=== PATIENT | male | born 1975 | race Caucasian/White ===

== ENCOUNTER 2020-01-31 18:26 | Emergency (ER) | payer BC, SELFPAY ==
[2020-01-31 18:38] VITALS: BP 160/101; PULSE 80; RESP 20; TEMP 36.6; O2SAT 95
--- NOTE | 2020-01-31 19:19 | ED.GENADULT ---
HPI - General Adult General Chief complaint: Upper Respiratory Infection Stated complaint: sore throat Time Seen by Provider: 01/31/20 19:19 Source: patient and RN notes reviewed Mode of arrival: ambulatory Limitations: no limitations History of Present Illness HPI narrative: 44-year-old male presents with complaints of sore throat and cough for the past 3 days. No treatment. No high fevers, drooling, neck or throat swelling. Pain is bilateral. Hurts to swallow. Exacerbation factors consist of eating and drinking. No rhinorrhea. Nasal congestion. No voice change. No nausea, vomiting, or abdominal pain. Tolerating liquids well. Denies chills, dyspnea, difficulty swallowing, jaw pain, dental pain, facial pain, foreign body sensation, and rash. Remains active. Some parts of this dictation were generated by voice recognition software and may contain typographical and/or grammatical inaccuracies. Related Data Home Medications Medication Instructions Recorded Confirmed albuterol sulfate [Ventolin HFA] 2 inh INHALATION DAILY 01/31/20 01/31/20 budesonide-formoterol [Symbicort] 1 inh INHALATION DAILY 01/31/20 01/31/20 cetirizine 10 mg PO DAILY 01/31/20 01/31/20 mometasone-formoterol [Dulera] 1 inh INHALATION DAILY 01/31/20 01/31/20 pantoprazole 40 mg PO DAILY 01/31/20 01/31/20 phentermine 37.5 mg PO DAILY 01/31/20 01/31/20 topiramate 25 mg PO DAILY 01/31/20 01/31/20 Allergies Allergy/AdvReac Type Severity Reaction Status Date / Time No Known Allergies Allergy Verified 01/31/20 19:02 Review of Systems Review of Systems: Narrative: CONSTITUTIONAL: Denies fever, chills, sweats. EYES: Denies visual changes, redness, discharge. ENT: Denies rhinorrhea, otalgia. Complains of sore throat, congestion. CARDIOVASCULAR: Denies chest pain, palpitations, edema. RESPIRATORY: Denies dyspnea, wheezing. Complains of dry cough. GASTROINTESTINAL: Denies abdominal pain, nausea, vomiting, diarrhea. GENITOURINARY: Denies dysuria, hematuria, abnormal discharge. SKIN: Denies rash or itching. MUSCULOSKELETAL: Denies acute back pain, joint pain, or myalgia. NEUROLOGIC: Denies numbness or focal weakness. PSYCHIATRIC: Denies anxiety or depression. All systems reviewed & are unremarkable except as noted in HPI and below. FOR[facility]LY [facility] Past Medical History Medical History (Updated 02/01/20 @ 00:00 by Shavonne Carter) Lung abnormality Surgical History Surgical History (Updated 01/31/20 @ 19:27 by BEATRIZ Vera) No significant past surgical history Family History Family History (Updated 01/31/20 @ 19:27 by BEATRIZ Vera) Other No significant family history Social History Social History (Updated 01/31/20 @ 19:28 by BEATRIZ Vera) Smoking packs per day: 2 Smoking cigarettes per day: 40.0 Years smoked: 30 Smoking pack-years: 60.00 Smoking status: Current every day smoker Tobacco type: cigarettes Second hand tobacco smoke exposure: Yes Alcohol intake: never Substance use: never Living arrangements: with family Occupation/Education: occupation Gender identity (if verbalized by the patient): Male Comments At time of signature, agree with nurse past medical, surgical, social, and family history. There is no relevant family history pertinent to the presenting complaint. Exam Narrative: Exam Narrative: GENERAL: This is a well-nourished, well-developed patient, in no apparent distress. Speaks in full sentences without deficits and ambulates with steady gait without dyspnea. HEAD: normocephalic, atraumatic. EYES: PERRL. Sclera clear/white. Vision is grossly intact. EARS: External ears normal, auditory canals clear and without drainage, TMs normal without perforation. Hearing grossly intact. NOSE: External nose normal with no obvious nasal discharge, nares with mild-moderate redness and enlarge turbinates, yellow rhinorrhea. MOUTH: Moist mucous membranes, with ulcerative lesions
[2020-01-31 19:31] VITALS: BP 138/86
== END 2020-01-31 19:44 | disposition home or self-care (01) ==
PROVIDERS: Emergency Provider Nurse Practitioner Family; PCP Internal Medicine
DX: K12.1 Other forms of stomatitis (principal); Z76.0 Encounter for issue of repeat prescription; F17.210 Nicotine dependence, cigarettes, uncomplicated
CPT/HCPCS: 87081; 87880; 99203; G0463